=== PATIENT | male | born 1975 | race Caucasian/White ===

== ENCOUNTER 2016-08-04 19:36 | Emergency (ER) | payer OTHER ==
[~2016-08-04] VITALS: Ht 170.2 cm; Wt 111.1 kg
--- NOTE | 2016-08-04 20:09 | ED INFLUENZA/URI COMPLAINT ---
History of Present Illness General Chief Complaint: Fever Stated Complaint: FEVER Source: patient Exam Limitations: no limitations Vital Signs & Intake/Output Vital Signs & Intake/Output Vital Signs Date Time Temp Pulse Resp B/P Pulse O2 O2 Flow FiO2 Ox Delivery Rate 08/04 2146 100.5 92 22 152/81 100 Room Air 08/04 2040 158/92 08/04 1948 101.3 117 20 161/109 96 Room Air Allergies Coded Allergies: NO KNOWN ALLERGIES (08/04/16) Reconcile Medications Diphenhydramine HCl (Benadryl) 25 MG CAPSULE 2 CAP PO QPM PRN SLEEP Ketorolac Tromethamine 10 MG TABLET 1 TAB PO TID PRN PAIN Methylprednisolone. (Medrol) 4 MG TAB.DS.PK 1 DP PO AD INFLAMMATION 6 on day 1 then reduce by one tablet daily until gone Valsartan 160 MG TABLET 1 TAB PO DAILY HTN (Reported) Triage Note: TRIAGE: PT TO ER C/C FEVER, BACK ACHE. ONSET MONDAY NIGHT. TRIED ADVIL, NYQUIL AND TYLENOL EXTRA STRENGTH. LAST DOSE OF ANYTHING WAS TYLENOL EXTRA STRENGTH AT 15:30. TEMP 101.3 AT TRIAGE. PREFERS TO WAIT TO BE SEEN FOR ANY MEDICATION. Triage Nurses Notes Reviewed? yes Onset: Gradual Duration: constant Timing: recent history Severity: severe Severity Numbers: 8 HPI: Patient is a 40-year-old male with a past medical history of hypertension and hyperlipidemia who presents to emergency room with concerns of persistent body aches fevers chills sore throat headache. Patient has been taking ibuprofen with relief of symptoms. Patient has positive sick contacts. Denies any chest pain neck pain neck stiffness ear pain Patient has mild nonproductive cough (SYL JONES) Past History Travel History Traveled to [place] past 21 day No Medical History Any Pertinent Medical History? 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 No (SYL JONES) Review of Systems Review of Systems Constitutional: Reports: see HPI, chills. EENTM: Reports: see HPI. Respiratory: Reports: see HPI, cough. Cardiovascular: Reports: no symptoms. GI: Reports: no symptoms. Genitourinary: Reports: no symptoms. Musculoskeletal: Reports: see HPI, joint pain, muscle pain. Skin: Reports: no symptoms. Neurological/Psychological: Reports: see HPI, headache. Hematologic/Endocrine: Reports: no symptoms. Immunologic/Allergic: Reports: no symptoms. All Other Systems: Reviewed and Negative (SYL JONES) Physical Exam Physical Exam General Appearance: mild distress Ears, Nose, Throat: moist mucous membrane, hearing grossly normal, Tympanic normal, nasal congestion, nasal drainage, pharyngeal erythema, tonsillar exudate Comments: HEENT: extraocular motion intact, no nystagmus. Pupils equally round and reactive to light and accommodation. Nose is atraumatic. External auditory canal and Tympanic membranes clear. Neck: Supple, no lymphadenopathy, normal range of motion without pain or tenderness Negative Kernig's sign and negative Brudzinski Back: Nontender, no CVA tenderness. Cardiovascular: Regular rate and rhythms no murmurs rubs or gallops, normal JVP Respiratory: Chest nontender. No respiratory distress.breath sounds clear to auscultation bilaterally Abdomen: Soft, nontender nondistended, no appreciable organomegaly. Normal bowel sounds. No ascites Extremity: No edema, no calf tenderness to palpation, normal and equal pulses. Neuro: Alert oriented x3, motor sensory normal, Skin: No appreciable rash on exposed skin, skin is warm and dry. Psych: Mood and affect is normal, memory and judgment is normal. Core Measures Severe Sepsis Present: No Septic Shock Present: No (SYL JONES) Progress Differential Diagnosis: influenza, meningitis, neutropenia, otitis, pneumonia, pharyngitis, sinusitis Plan of Care: Orders Procedure Date/time Status THROAT CULTURE W/QUICK STREP 08/04 2013 Active RAPID VIRAL INFLUENZA A 08/04 2008 Complete Current Medications Sig/Roney Start time Last Medication Dose Stop Time Status Admin Acetaminophen 1,000 MG ONCE ONE 08/04 2014 CAN (Ofirmev) 08/04 2028 N/A 1 UNIT (No Carrier) Microbiology 08/05 2019 NASOPHARYN: Influenza Virus A & B Rapid Smear - COMP Reevaluation the patient he has significant improvement of his symptoms with medications administered in the emergency room. Blood pressure was improved. Negative influenza negative strep cultures pending. Patient was able tolerate by mouth on discharge. Patient will be treated for concerns of viral syndrome and pharyngitis (SYL JONES) Initial ED EKG: none (SYL JONES) Departure Departure Disposition: HOME OR SELF CARE Condition: Stable Clinical Impression Primary Impression: Pharyngitis Secondary Impressions: Viral syndrome Referrals: GIORGIO CHRISTIAN,MYL (PCP/Family) Additional Instructions: As discussed begin the prescription of Medrol Dosepak as directed for inflammation. Begin the prescription of ketorolac for pain and inflammation. Begin the prescription of Benadryl to improve your sleeping. Begin DRINKING water for hydration. Begin [id number] Tylenol for fevers. Perceptions waiting at [facility]. If symptoms worsen or if YOU develop any new concerning symptom return to emergency room. Follow-up in doctor on Monday if no better Departure Forms: Customer Survey General Discharge Information Prescriptions: Current Visit Scripts Methylprednisolone. (Medrol) 1 DP PO AD #1 DP 6 on day 1 then reduce by one tablet daily until gone Ketorolac Tromethamine 1 TAB PO TID PRN PAIN #15 TAB Diphenhydramine HCl (Benadryl) 2 CAP PO QPM PRN SLEEP #7 CAP (SYL JONES) PA/CELLULOSE INSULATION HELPER Co-Sign Statement Statement: ED Attending supervision documentation- [] I saw and evaluated the patient. I have also reviewed all the pertinent lab results and diagnostic results. I agree with the findings and the plan of care as documented in the PA's/CELLULOSE INSULATION HELPER's documentation. x I have reviewed the ED Record and agree with the PA's/CELLULOSE INSULATION HELPER's documentation. [] Additions or exceptions (if any) to the PAs/CELLULOSE INSULATION HELPER's note and plan are summarized below: [] (ELIE CHRISTIAN,MENDOZA)
[2016-08-04] MEDS ORDERED: BENADRYL25 MG PO (21:27)
[2016-08-04] MEDS ORDERED: MEDROL4 M2 PO (21:27)
[2016-08-04] MEDS ORDERED: KETOROLAC TROME10 M1 PO (21:27)
[2016-08-04 21:47] VITALS: BP 152/81
[2016-08-04] MEDS ORDERED: VALSARTAN160 M1 PO (21:47)
[2016-08-05] MEDS ORDERED: PROTONIX40 M3 PO (08:26)
[2016-08-05] MEDS ORDERED: AMBIEN5 M1 PO (08:26)
== END 2016-08-04 21:49 ==
LOC: ERH 19:36
DX: J02.9 Acute pharyngitis, unspecified (principal); B34.9 Viral infection, unspecified
CPT/HCPCS: 87804; 87804-59; 96361; 96374; J1885

== ENCOUNTER 2016-08-05 07:35 | Emergency (ER) | payer OTHER ==
[~2016-08-05] VITALS: Ht 170.2 cm; Wt 111.1 kg
[~2016-08-05 07:35] MED LIST: BENADRYL25 MG PO; KETOROLAC TROME10 M1 PO; MEDROL4 M2 PO; VALSARTAN160 M1 PO
[2016-08-05 07:38] VITALS: BP 181/95
--- NOTE | 2016-08-05 07:41 | ED GI/GU/ABDOMINAL COMPLAINT ---
History of Present Illness General Chief Complaint: General Adult Stated Complaint: CONSTIPATION, WAS HERE LAST NIGHT Vital Signs & Intake/Output Vital Signs & Intake/Output Vital Signs Date Time Temp Pulse Resp B/P Pulse O2 O2 Flow FiO2 Ox Delivery Rate 08/05 0803 98 Room Air 08/05 0738 97.0 104 18 181/95 96 Room Air Allergies Coded Allergies: NO KNOWN ALLERGIES (08/04/16) Reconcile Medications Amoxicillin/Potassium Clav (Augmentin 875-125 Tablet) 875 MG-125 MG TABLET 1 TAB PO BID pharyngitis/bronchitis Diphenhydramine HCl (Benadryl) 25 MG CAPSULE 2 CAP PO QPM PRN SLEEP Ketorolac Tromethamine 10 MG TABLET 1 TAB PO TID PRN PAIN Methylprednisolone. (Medrol) 4 MG TAB.DS.PK 1 DP PO AD INFLAMMATION 6 on day 1 then reduce by one tablet daily until gone Pantoprazole Sodium (Protonix) 40 MG TABLET.DR 1 TAB PO D GERD Valsartan 160 MG TABLET 1 TAB PO DAILY HTN (Reported) Zolpidem Tartrate (Ambien) 5 MG TABLET 5 MG PO QHS PRN INSOMNIA Triage Note: 40 Y/O MALE C/O (BENNY CHRISTIAN,SATHYA) General Source: patient, old records Exam Limitations: no limitations Triage Nurses Notes Reviewed? yes Onset: Abrupt Duration: day(s): Timing: recent history HPI: This is a 40 yo male with PMH of HTN, HLD, with remote dx of gastric ulcer presents with a chief complaint of "can't sleep because is a pressure of abdomen making the short of breath." Of note, patient was seen yesterday in the [place] ED for pharyngitis/fever and back pain with a MAXIMUM TEMPERATURE of 101.3. At that time workup was largely negative including strep and flu workup. Patient was given prescription for Medrol Dosepak, Ketorolac, Benadryl, and told to increase fluids and use Tylenol for control of fever. Patient says he took the medications as prescribed and he does feel better regarding the fever and pharyngitis but he states that there is no change in his sleeping pattern. He states that for the last 30 hours he has remained awake despite a total of 4 doses of Benadryl. He endorsed fatigue and tiredness but the subjective sensation of pressure in his abdomen pushing in his chest repeatedly wakes him up. His last bowel movement was yesterday at 10 AM. Patient describes it as scant, watery and with a few drops of blood in it. He states that he's had a long history of stomach ulcer that a few drops of blood is not unusual for him. He denies any dark tarry stools, increase in blood, abdominal pain, nausea, vomiting, hematemesis, flank pain, dysuria, hematuria, fever, and night sweats. Of note, he states that similar symptoms have happened before around 1 year ago. He states after he had a bowel movement symptoms resolved. Patient is a pack per day smoker and a social drinker. Denies any IV or street drugs including opiates. 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 see below for history Cardiovascular: hypertension, hyperlipidemia Gastrointestinal: peptic ulcer disease Surgical History Surgical History: non-contributory Psychosocial History ETOH Use: occasional use Illicit Drug Use: denies illicit drug use Family History Hx Contributory? No (GUI CHRISTIAN,HUNTER) Review of Systems Review of Systems Constitutional: Reports: malaise. Denies: chills, fever, unexplained weight loss. EENTM: Reports: no symptoms. Respiratory: Denies: cough, hemoptysis, orthopnea, short of breath. Cardiovascular: Denies: chest pain, orthopena, palpitations, peripheral edema. GI: Reports: constipation, bloody stool, changes in stool. Denies: abdominal pain, bloating, diarrhea, distention, bowel incontinence, melena, nausea, vomiting. Genitourinary: Denies: discharge, dysuria, frequency, hematuria. Musculoskeletal: Reports: no symptoms. Skin: Reports: no symptoms. Neurological/Psychological: Denies: anxiety, depressed. (HUNTER MESSER MD) Physical Exam Physical Exam General Appearance: well developed/nourished, no apparent distress, alert, awake , comfortable Head: atraumatic, normal appearance Eyes: Bilateral: normal appearance, PERRL, EOMI, normal inspection. Neck: supple Respiratory: normal breath sounds, no respiratory distress, quiet respiration, lungs clear Cardiovascular: regular rate/rhythm Gastrointestinal: soft, non-tender, diminished BS Extremities: normal range of motion Core Measures ACS in differential dx? No Severe Sepsis Present: No Septic Shock Present: No (HUNTER MESSER MD) Progress Differential Diagnosis: gastritis, hemorrhoids, peptic ulcer, PUD/GERD Plan of Care: Pt has CC of insomnia and constipation. His workup yesterday was largely negative. Given his hisotry of PUD and constipation we will D/C Ketorolac as it can exacerbate both conditions. We will prescribe protonix as he is on steroid taper and prescribe 5-7 pills of Ambien for insomnia. Pt has been infomred of care plan and encouraged to f/u with his PCP. He will be d/c from ED and can follow up as necessary Initial ED EKG: none (HUNTER MESSER MD) Departure Departure Condition: Stable Referrals: GIORGIO CHRISTIAN,MYL (PCP/Family) PA/RING FACER Co-Sign Statement Statement: ED Attending supervision documentation- [] I saw and evaluated the patient. I have also reviewed all the pertinent lab results and diagnostic results. I agree with the findings and the plan of care as documented in the PA's/RING FACER's documentation. [] I have reviewed the ED Record and agree with the PA's/RING FACER's documentation. [] Additions or exceptions (if any) to the PAs/RING FACER's note and plan are summarized below: [] Resident Co-Sign Statement Statement: ED Attending supervision documentation- [x] I saw and evaluated the patient. I have also reviewed all the pertinent lab results and diagnostic results. I agree with the findings and the plan of care as documented in the Resident's documentation. [x] I have reviewed the ED Record and agree with the Resident's documentation. [] Additions or exceptions (if any) to the Resident's note and plan are summarized below: [] (BENNY CHRISTIAN,SATHYA) Departure Time of Disposition: 824 Disposition: HOME OR SELF CARE Clinical Impression Primary Impression: Insomnia Secondary Impressions: GERD (gastroesophageal reflux disease) Additional Instructions: Take the ambien and protonix as directed. Stop the toradol. Follow up with your doctor, return as needed. Departure Forms: Customer Survey General Discharge Information Prescriptions: Current Visit Scripts Zolpidem Tartrate (Ambien) 5 MG PO QHS PRN INSOMNIA 7 Days Pantoprazole Sodium (Protonix) 1 TAB PO D 14 Days (GUI CHRISTIAN,HUNTER) ED Attending Observation Initial Observation Note: I have seen and personally examined CRISTO RAMIREZ SR on 08/05/16 at 0743. I agree with the current emergency department documentation. The disposition (admission or discharge) is uncertain at this time, he needs a period of observation for the following reason(s): The ED Nurse caring for this patient has been personally informed as to what the patient is being observed for. (BENNY CHRISTIAN,SATHYA)
[2016-08-05] MEDS ORDERED: AMBIEN5 M1 PO (08:26)
[2016-08-05] MEDS ORDERED: PROTONIX40 M3 PO (08:26)
== END 2016-08-05 08:34 ==
LOC: ERH 07:35
DX: G47.00 Insomnia, unspecified (principal); K21.9 Gastro-esophageal reflux disease without esophagitis

== ENCOUNTER 2016-08-07 23:05 | Emergency (ER) | payer OTHER ==
[~2016-08-07] VITALS: Ht 170.2 cm; Wt 111.1 kg
[~2016-08-07 23:05] MED LIST changes: +AMBIEN5 M1 PO; +PROTONIX40 M3 PO
[2016-08-07 23:13] VITALS: BP 148/94
--- NOTE | 2016-08-07 23:32 | ED GENERAL ADULT ---
History of Present Illness General Chief Complaint: General Adult Stated Complaint: INSOMNIA Source: patient Exam Limitations: no limitations Vital Signs & Intake/Output Vital Signs & Intake/Output Vital Signs Date Time Temp Pulse Resp B/P Pulse O2 O2 Flow FiO2 Ox Delivery Rate 08/07 2313 99.7 114 18 148/94 97 Room Air ED Intake and Output 08/08 0000 08/07 1200 Intake Total Output Total Balance Patient 245 lb Weight Allergies Coded Allergies: NO KNOWN ALLERGIES (08/04/16) Reconcile Medications Amoxicillin/Potassium Clav (Augmentin 875-125 Tablet) 875 MG-125 MG TABLET 1 TAB PO BID pharyngitis/bronchitis Diphenhydramine HCl (Benadryl) 25 MG CAPSULE 2 CAP PO QPM PRN SLEEP Ketorolac Tromethamine 10 MG TABLET 1 TAB PO TID PRN PAIN Methylprednisolone. (Medrol) 4 MG TAB.DS.PK 1 DP PO AD INFLAMMATION 6 on day 1 then reduce by one tablet daily until gone Pantoprazole Sodium (Protonix) 40 MG TABLET.DR 1 TAB PO D GERD Valsartan 160 MG TABLET 1 TAB PO DAILY HTN (Reported) Zolpidem Tartrate (Ambien) 5 MG TABLET 5 MG PO QHS PRN INSOMNIA Triage Note: PT TO ED C/O INSOMNIA. SEEN ON 08/04 FOR FEVER, SORE THROAT AND INSOMNIA. SEEN ON 08/05 FOR CONSTIPATION. TOOK 5 MG AMBIEN "WITH A LITTLE WINE" SLEPT WELL BUT "WOKE UP FEELING LIKE CRAP" TRIED AMBIEN AGAIN, TOOK IN AM AFTER BEING DISCHARGED FROM ED AND "IT DIDN'T HELP AT ALL" Triage Nurses Notes Reviewed? yes Onset: Gradual Duration: day(s):, waxing and waning Timing: recent history Injury Environment: home Severity: moderate Modifying Factors: Improves With: rest. Associated Symptoms: sore throat HPI: 40-year-old gentleman presents with 2 issues: Insomnia and sore throat. He notes that he was seen in the emergency department last week, was given Ambien 5 mg for insomnia. He notes that the Ambien 5 mg did not work for stay. The following day he took Ambien 5 mg along with a glass of wine. I slept all night. But when I woke up I felt stoned." He notes that for the past 5 or 6 days he's had a sore throat cough productive with a small amount of phlegm. He has had no fever, difficulty swallowing, difficulty speaking. He notes pain along the right side of his neck. He has no dyspnea chest pain shortness of breath nausea vomiting or diarrhea. Past History Travel History Traveled to [place] past 21 day No Medical History Any Pertinent Medical History? 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 No Review of Systems Review of Systems Constitutional: Reports: no symptoms. EENTM: Reports: no symptoms. Respiratory: Reports: no symptoms. Cardiovascular: Reports: no symptoms. GI: Reports: no symptoms. Genitourinary: Reports: no symptoms. Musculoskeletal: Reports: no symptoms. Skin: Reports: no symptoms. Neurological/Psychological: Reports: no symptoms. Hematologic/Endocrine: Reports: no symptoms. Immunologic/Allergic: Reports: no symptoms. All Other Systems: Reviewed and Negative Physical Exam Physical Exam General Appearance: well developed/nourished, mild distress Head: atraumatic, normal appearance Eyes: Bilateral: normal appearance. Ears, Nose, Throat: pharyngeal erythema, no exudates. No sign of abscess. No uvular deviation, but diffuse erythema of the pharynx Neck: normal inspection, supple, full range of motion Respiratory: normal breath sounds, chest non-tender, no respiratory distress, quiet respiration, lungs clear Cardiovascular: regular rate/rhythm Gastrointestinal: normal bowel sounds, soft, non-tender, no organomegaly Back: normal inspection Extremities: normal inspection, normal capillary refill, normal range of motion, no edema Neurologic/Psych: no motor/sensory deficits, awake, alert, oriented x 3 Skin: intact, normal color, warm/dry Core Measures ACS in differential dx? No CVA/TIA Diagnosis: No Severe Sepsis Present: No Septic Shock Present: No Progress Differential Diagnoses I considered the following diagnoses in my evaluation of the patient: pharyngitis vs bronchitis vs other ... i doubt abscess insomnia vs psyche vs other. Plan of Care: Current Medications Sig/Roney Start time Last Medication Dose Stop Time Status Admin Amoxicillin/ 1,000 MG ONCE ONE 08/07 2344 UNVr Clavulanate Potassium 08/07 2345 (Augmentin) Initial ED EKG: none Departure Departure Disposition: HOME OR SELF CARE Condition: Stable Clinical Impression Primary Impression: Pharyngitis Secondary Impressions: Insomnia Referrals: GIORGIO CHRISTIAN,MYL (PCP/Family) Departure Forms: Customer Survey General Discharge Information Prescriptions: Current Visit Scripts Amoxicillin/Potassium Clav (Augmentin 875-125 Tablet) 1 TAB PO BID #20 TAB Comments 08/07/16, 23:40... no signs of abscess.... pt with cough w/phlegm... pt merits abx and ent referral... also, i instructed pt to take ambien 10mg and encouraged close follow up with pmd. Critical Care Note Critical Care Note Critical Care Time: non-applicable
[2016-08-07] MEDS ORDERED: AUGMENTIN 875-1 EACH PO (23:42)
== END 2016-08-08 00:09 ==
LOC: ERH 23:05
DX: J02.9 Acute pharyngitis, unspecified (principal); G47.00 Insomnia, unspecified; Z72.0 Tobacco use
CPT/HCPCS: J3490